=== PATIENT | female | born 1990 | race Caucasian/White ===

== ENCOUNTER 2016-09-07 21:05 | Emergency (ER) | payer OTHER ==
[~2016-09-07] VITALS: Ht 167.6 cm; Wt 76.4 kg
[~2016-09-07 21:05] MED LIST: ACETAMINOPHEN; ACETAMINOPHEN PO; ADVIL COLD & SI1 TA2 PO; ALLEGRA-D1 TAB.SR3 PO; ALLERGY MED; AMITRIPTYLINE H25 MG PO; BACTRIM DS TABL1 TA1 PO; BENTYL10 M1 PO; BIRTH CONTROL PILL PO; CLARITIN10 MG PO; CLEOCIN; CLINDAMYCIN HC300 MG; DICLOFENAC; ERY-TAB250 MG PO; ERY-TAB500 MG PO; ERYTHROMYCIN500 MG PO; FAMOTIDINE PO; FLEXERIL PO; FLONASE 0.05% N16 G1; FLONASE16 GM; GUAIFENESIN400 M1 PO; IBUPROFEN PO; IBUPROFEN600 MG PO; IBUPROFEN800 MG PO; LORTAB 5-325 M1 EACH; MACROBID100 MG PO; MOTRIN600 M2 PO; NAPROXEN PO; NASONEX17 GM; NO MEDICATIONS; PHENERGAN DM1 ML PO; PHENERGAN PO; PHENERGAN25 M1 PO; PHENERGAN25 MG PO; PRILOSEC PO; REGLAN PO; RELPAX40 MG PO; ROBITUSSIN-PE240 ML PO; VOLTAREN50 MG PO; VOLTAREN75 MG PO; ZANTAC PO; ZANTAC150 MG PO; ZITHROMAX PO; ZOFRAN ODT4 MG PO; ZOFRAN PO; ZYRTEC PO; [UNRECOGNIZED DRUG - OTHER]
== END 2016-09-07 22:01 | disposition home or self-care (01) ==
LOC: SED 21:05
DX: N75.1 Abscess of Bartholin's gland (principal); K21.9 Gastro-esophageal reflux disease without esophagitis; Z87.440 Personal history of urinary (tract) infections; Z88.0 Allergy status to penicillin; Z91.040 Latex allergy status
CPT/HCPCS: 87070; 87205; 99283